=== PATIENT | female | born 1960 | race Hispanic/Latino ===

== ENCOUNTER 2018-04-03 16:56 | Observation (INO) | payer OTHER ==
[~2018-04-03] VITALS: Ht 160 cm; Wt 108.4 kg
[~2018-04-03 16:56] MED LIST: LOMOTIL1 EA; Z.0.ALEVE220 MG; Z.0.ATENOLOL50 MG; Z.0.CYMBALTA60 MG; Z.0.FLAGYL500 MG PO; Z.0.LEVAQUIN500 MG PO; [UNRECOGNIZED DRUG - OTHER]
--- OUTSIDE RECORDS SUMMARY | 2018-04-03 17:01 | XMS REPORT ---
Author Author Matt Chavarria Organization [employer] Address Unknown Phone Unavailable Care Team Providers Care Coordinate Measuring Machine Operator Name Role Phone Matt Chavarria CP Unavailable Allergies No Known Allergies Problems Problem Type Condition Code Onset Dates Condition Status Assessment Encounter for long-term (current) use of other high-risk medications Z79.899 Active Problem Encounter for long-term (current) use of other high-risk medications Z79.899 Active Problem Fibromyalgia M79.7 Active Problem Lumbar and sacral arthritis M48.9 Active Assessment Inflammatory polyarthropathy M06.4 Active Assessment Fibromyalgia M79.7 Active Problem Inflammatory polyarthropathy M06.4 Active Medications No Known Medications Results No Known Results Summary Purpose [employer]Works Submission
--- OUTSIDE RECORDS SUMMARY | 2018-04-03 17:01 | XMS REPORT ---
Author Author Karly Quintero [facility] e[employer] Address Unknown Phone Unavailable Care Team Providers Care Director Of Music Therapy Name Role Phone Karly Quintero Unavailable Allergies, Adverse Reactions, Alerts Substance Reaction Event Type Methotrexate leg cramps Non Drug Allergy Problems Problem Type Condition Code Onset Dates Condition Status Problem Encounter for long-term (current) use of other high-risk medications Z79.899 Active Problem Fibromyalgia M79.7 Active Problem Lumbar and sacral arthritis M48.9 Active Assessment Fibromyalgia M79.7 Active Assessment Encounter for long-term (current) use of other high-risk medications Z79.899 Active Problem Inflammatory polyarthropathy M06.4 Active Assessment Inflammatory polyarthropathy M06.4 Active Medications Medication Code System Code Instructions Start Date End Date Status Dosage Diazepam [facility] 44274593623 5 MG Orally Twice a day Active 1 tablet as needed Magnesium [facility] [address]-74 100 MG Orally once a day Active 2 tablet Colestipol HCl [facility] 82118992220 1 GM Orally Once a day Active 2 tablets Metoprolol Succinate ER [facility] 86476233888 50 MG Orally Once a day Active 1 tablet Folic Acid [facility] 19030418838 1 MG Orally Once a day Active 2 tablets Savella [facility] 02226766524 50 MG Orally Twice a day Active 1 tablet Glimepiride [facility] 27717950466 2 MG Orally Once a day Active 1 tablet with breakfast or the first main meal of the day Calcium [facility] 69693606439 600 MG Orally Twice a day Active 1 tablet with meals Methotrexate Sodium [facility] [address]-31 25 MG/ML Injection once a week Active 0.5 ml Cayenne [facility] 39276536840 450 MG Orally Active as directed Hydrochlorothiazide-25 mg [facility] 37484224319 25 MG Orally Three times a Week Active 1 tablet in the morning Sumatriptan Succinate [facility] 55140371888 100 MG Orally Twice a day Active 1 tablet as needed MetFORMIN HCl ER [facility] 17123239762 500 MG Orally BID Active 2 tablets Cinnamon ND 31886158660 1000 MG Orally Active as directed Vitamin D-3 ND 29114653256 5000 UNIT Orally Once a day Active 1 tablet Klor-Con [facility] 64336997084 10 MEQ Orally Once a day Active not defined Ranitidine HCl [facility] 96069243282 150 MG Orally Once a day Active 1 capsule at bedtime Fortify Daily Probiotic [facility] 27866951745 - Orally Active as directed Fish Oil [facility] 96278574947 1200 MG Orally twice a day Active 1 capsule TART BENITES EXTRACT/TUMERIC ND 0 1200 MG ORALLY ONCE A DAY Active ONE CAPSULE Vitamin C [facility] [address]-38 1000 MG Orally Once a day Active 1 tablet Vitamin B12 [facility] 12785785507 2000 MG Orally Once a day Active 1 tablet Gabapentin [facility] 70555035020 300 MG Orally Once a day Active 1tab qhs x3 days then 2 tabs at night Clonazepam [facility] 14293769021 0.5mg bid Active not defined Vital Signs Date/Time: August 19, 2017 BMI 46.67 Index Weight 247 lbs Height 61 in Temperature 97.5 F Cardiac Monitoring Heart Rate 100 /min Blood Pressure Diastolic 82 mm Hg Blood Pressure Systolic 112 mm Hg Results No Known Results Summary Purpose [employer]ClinicalWorks Submission
--- OUTSIDE RECORDS SUMMARY | 2018-04-03 17:01 | XMS REPORT ---
Author Matt Montilla Organization [employer] Address Unknown Phone Unavailable Care Team Providers Care Paving Crew Foreman Name Role Phone Matt Chavarria CP Unavailable Allergies No Known Allergies Problems Problem Type Condition Code Onset Dates Condition Status Problem Encounter for long-term (current) use of other high-risk medications Z79.899 Active Problem Fibromyalgia M79.7 Active Problem Lumbar and sacral arthritis M48.9 Active Problem Inflammatory polyarthropathy M06.4 Active Medications No Known Medications Results No Known Results Summary Purpose [employer]ClinicalWorks Submission
--- OUTSIDE RECORDS SUMMARY | 2018-04-03 17:01 | XMS REPORT ---
Author Author Matt Chavarria Organization [employer] Address Unknown Phone Unavailable Care Team Providers Care Smart Energy Specialist Name Role Phone Matt Chavarria CP Unavailable Allergies No Known Allergies Problems Problem Type Condition Code Onset Dates Condition Status Assessment Lumbar and sacral arthritis M48.9 Active Problem Encounter for long-term (current) use of other high-risk medications Z79.899 Active Problem Inflammatory polyarthropathy M06.4 Active Problem Lumbar and sacral arthritis M48.9 Active Assessment Fibromyalgia M79.7 Active Assessment Encounter for long-term (current) use of other high-risk medications Z79.899 Active Problem Fibromyalgia M79.7 Active Assessment Inflammatory polyarthropathy M06.4 Active Medications No Known Medications Results No Known Results Summary Purpose [employer] Submission
--- OUTSIDE RECORDS SUMMARY | 2018-04-03 17:01 | XMS REPORT ---
Author Matt Montilla Organization [employer] Address Unknown Phone Unavailable Care Team Providers Care Medical Videographer Name Role Phone Matt Chavarria CP Unavailable [...]
--- OUTSIDE RECORDS SUMMARY | 2018-04-03 17:01 | XMS REPORT ---
Author Author Karly Quintero [facility] eClinical[employer] Address Unknown Phone Unavailable Care Team Providers Care City Superintendent Of Schools Name Role Phone Karly Quintero Unavailable Allergies, Adverse Reactions, Alerts Substance Reaction Event Type Methotrexate leg cramps Non Drug Allergy Problems Problem Type Condition Code Onset Dates Condition Status Problem Encounter for long-term (current) use of other high-risk medications Z79.899 Active Problem Fibromyalgia M79.7 Active Problem Lumbar and sacral arthritis M48.9 Active Assessment Inflammatory polyarthropathy M06.4 Active Problem Inflammatory polyarthropathy M06.4 Active Assessment Elbow pain M25.529 Active Medications Medication Code System Code Instructions Start Date End Date Status Dosage Clonazepam [facility] 76868836803 0.5mg bid Active not defined Prednisone Taper [facility] 24239687910 5mg August 26, 2017 Active 3 tablets for 5 days, 2 tablets for 5 days and then 1 tablet for 5 days Hydrochlorothiazide-25 mg [facility] 51874813309 25 MG Orally Three times a Week Active 1 tablet in the morning Fish Oil [facility] 12981185868 1200 MG Orally twice a day Active 1 capsule Cayenne [facility] 54791825299 450 MG Orally Active as directed Magnesium [facility] [address]-40 100 MG Orally once a day Active 2 tablet Vitamin B12 [facility] 00224564713 2000 MG Orally Once a day Active 1 tablet Folic Acid [facility] 97459724830 1 MG Orally Once a day Active 2 tablets Glimepiride [facility] 22956118540 2 MG Orally Once a day Active 1 tablet with breakfast or the first main meal of the day Sumatriptan Succinate [facility] 11901132261 100 MG Orally Twice a day Active 1 tablet as needed Colestipol HCl [facility] 35290788180 1 GM Orally Once a day Active 2 tablets Ranitidine HCl [facility] 37640105663 150 MG Orally Once a day Active 1 capsule at bedtime Methotrexate Sodium [facility] [address]-57 25 MG/ML Injection once a week Active 0.5 ml Cinnamon NDC 21072647477 1000 MG Orally Active as directed Vitamin D-3 ND 80427872973 5000 UNIT Orally Once a day Active 1 tablet Cephalexin [facility] 41401027311 500 MG Orally TID August 26, 2017 Active 1 capsule TART BENITES EXTRACT/TUMERIC NDC 0 1200 MG ORALLY ONCE A DAY Active ONE CAPSULE Calcium ND 47013567989 600 MG Orally Twice a day Active 1 tablet with meals Klor-Con [facility] 06260329044 10 MEQ Orally Once a day Active not defined Fortify Daily Probiotic [facility] 67994871493 - Orally Active as directed Gabapentin [facility] 37839343524 300 MG Orally Once a day Active 1tab qhs x3 days then 2 tabs at night MetFORMIN HCl ER [facility] 45917996583 500 MG Orally BID Active 2 tablets Diazepam [facility] 51082009767 5 MG Orally Twice a day Active 1 tablet as needed Vitamin C [facility] [address]-74 1000 MG Orally Once a day Active 1 tablet Savella [facility] 34795717017 50 MG Orally Twice a day Active 1 tablet Metoprolol Succinate ER [facility] 93066179293 50 MG Orally Once a day Active 1 tablet Vital Signs Date/Time: August 29, 2017 BMI 46.57 Index Weight 246.5 lbs Height 61 in Temperature 97.2 F Cardiac Monitoring Heart Rate 78 /min Blood Pressure Diastolic 80 mm Hg Blood Pressure Systolic 122 mm Hg Results No Known Results Summary Purpose eClinicalWorks Submission
--- OUTSIDE RECORDS SUMMARY | 2018-04-03 17:01 | XMS REPORT ---
Author Matt Montilla Organization [employer] Address Unknown Phone Unavailable Care Team Providers Care Photo Tech Name Role Phone Matt Chavarria CP Unavailable [...]
--- OUTSIDE RECORDS SUMMARY | 2018-04-03 17:01 | XMS REPORT ---
Author Author Karly Quintero [facility] eClinicalWorks Address Unknown Phone Unavailable Care Team Providers Care Transportation Worker Name Role Phone Karly Quintero Unavailable Allergies No Known Allergies Problems Problem Type Condition Code Onset Dates Condition Status Problem Encounter for long-term (current) use of other high-risk medications Z79.899 Active Problem Fibromyalgia M79.7 Active Problem Lumbar and sacral arthritis M48.9 Active Problem Inflammatory polyarthropathy M06.4 Active Assessment Inflammatory polyarthropathy M06.4 Active Medications Medication Code System Code Instructions Start Date End Date Status Dosage Folic Acid [facility] 61313902197 1 MG Orally Once a day Active 2 tablets Results No Known Results Summary Purpose eClinicalWorks Submission
--- OUTSIDE RECORDS SUMMARY | 2018-04-03 17:01 | XMS REPORT ---
Author Matt Montilla Organization [employer] Address Unknown Phone Unavailable Care Team Providers Care Gutter Hanger Name Role Phone Matt Chavarria CP Unavailable [...]
--- OUTSIDE RECORDS SUMMARY | 2018-04-03 17:01 | XMS REPORT | Continuity of Care Document ---
Author Author Simone diogo [facility] Interface Address Unknown Phone Unavailable Problems Problem Status Onset Date Classification Date Reported Comments Source Encounter for long-term use of other high-risk medications Active Diagnosis 02/24/2018 Martin Chavarria Fibromyalgia Active Problem 02/24/2018 Martin Chavarria Lumbar and sacral arthritis Active Problem 02/24/2018 Martin Aura Inflammatory polyarthropathy Active Diagnosis 02/24/2018 Martin Chavarria Elbow pain Active Diagnosis 09/09/2017 Martin Chavarria Lumbosacral spondylosis without myelopathy Active Problem 02/11/2017 Martin Chavarria Lumbar spinal stenosis Active Diagnosis 02/11/2017 Martin Chavarria Lumbar foraminal stenosis Active Problem 02/11/2017 Martin Chavarria Diabetic peripheral neuropathy Active Problem 02/11/2017 Martin Chavarria Spasm of muscle, back Active Problem 02/11/2017 Martin Chavarria Lumbar radiculopathy Active Problem 02/11/2017 Martin Chavarria Medications Medication Details Route Status Patient Instructions Ordering Provider Order Date Source Prednisone Taper 3 tablets for 5 days, 2 tablets for 5 days and then 1 tablet for 5 days NA Active 5mg Quintero 08/26/2017 Martin Chavarria Cephalexin 1 capsule Orally Active 500 MG Orally TID Quintero 08/26/2017 Martin Chavarria Valium 1 tablet as needed Orally Active 5 MG Orally Twice a day Tonny 11/24/2016 Martin Chavarria Folic Acid 2 tablets Orally Active 1 MG Orally Once a day Quinterogildardo Chavarria Fish Oil 1 capsule Orally Active 1200 MG Orally twice a day Leon Chavarria Klor-Con not defined Orally Active 10 MEQ Orally Once a day Leon Chavarria Glimepiride 1 tablet with breakfast or the first main meal of the day Orally Active 2 MG Orally Once a day Leon Chavarria Hydrochlorothiazide-25 mg 1 tablet in the morning Orally Active 25 MG Orally Three times a Week Leon Chavarria TART BENITES EXTRACT/TUMERIC ONE CAPSULE ORALLY Active 1200 MG ORALLY ONCE A DAY Quinterogildardo Chavarria Magnesium 2 tablet Orally Active 100 MG Orally once a day Quintero Martin Chavarria Vitamin C 1 tablet Orally Active 1000 MG Orally Once a day Quintero Martin Chavarria Ranitidine HCl 1 capsule at bedtime Orally Active 150 MG Orally Once a day Quintero Martin Chavarria Clonazepam not defined NA Active 0.5mg bid [place] Martin Chavarria Calcium 1 tablet with meals Orally Active 600 MG Orally Twice a day [place] Martin Chavarria Vitamin B12 2 tablets Orally Active 500 MCG Orally Once a day Quintero Martin Chavarria Diazepam 1 tablet as needed Orally Active 5 MG Orally Twice a day [place] Martin Chavarria Gabapentin 1tab qhs x3 days then 2 tabs at night Orally Active 300 MG Orally Once a day Quintero Martin Chavarria Savella 1 tablet Orally Active 50 MG Orally Twice a day Quintero Martin Chavarria Colestipol HCl 2 tablets Orally Active 1 GM Orally Once a day [place] Martin Chavarria Metoprolol Succinate ER 1 tablet Orally Active 50 MG Orally Once a day [place] Martin Chavarria MetFORMIN HCl ER 2 tablets Orally Active 500 MG Orally BID [place] Martin Chavarria Cinnamon as directed Orally Active 1000 MG Orally [place] Martin Chavarria Cayenne as directed Orally Active 450 MG Orally [place] Martin Chavarria Sumatriptan Succinate 1 tablet as needed Orally Active 100 MG Orally Twice a day [place] Martin Chavarria Vitamin B12 1 tablet Orally Active 2000 MG Orally Once a day [place] Martin Chavarria Methotrexate Sodium 0.7 ml Injection Active 25 MG/ML Injection once a week [place] Martin Chavarria Fortify Daily Probiotic as directed Orally Active - Orally [place] Martin Chavarria TUMERIC 1 CAPSULE ORALLY Active 780MG ORALLY ONCE A DAY [place] Martin Chavarria ProAir HFA 2 puffs as needed Inhalation Active 108 (90 Base) MCG/ACT Inhalation every 4 hrs [place] Martin Chavarria Insulin Syringe 1 injection SC Active 28G X 1/2" 1 ML SC once per week [place] Martin Chavarria Alosetron HCl 1 tablet Orally Active 0.5 MG Orally Twice a day [place] Martin Chavarria Lumigan 1 drop into affected eye in the evening Ophthalmic Active 0.03 % Ophthalmic Once a day [place] Martin Chavarria Atenolol 1 tablet Orally Active 50 MG Orally Once a day [place] Martin Chavarria Omeprazole 1 tablet Orally Active 20 MG Orally Once a day [place] Martin Chavarria Omeprazole 1 tablet Orally Active 20 MG Orally Once a day [place] Martin Chavarria Cinnamon as directed Orally Active 1000 MG Orally [place] Martin Chavarria Atenolol 1 tablet Orally Active 50 MG Orally Once a day [place] Martin Chavarria Glimepiride 1 tablet with breakfast or the first main meal of the day Orally Active 2 MG Orally Once a day [place] Martin Chavarria Fish Oil 1 capsule Orally Active 1200 MG Orally twice a day [place] Martin Giller Insulin Syringe 1 injection SC Active 28G X 1/2" 1 ML SC once per week Clinton aMrtin Giller Klor-Con not defined Orally Active 10 MEQ Orally Once a day [place] Martin Chavarria Alosetron HCl 1 tablet Orally Active 0.5 MG Orally Twice a day [place] Martin Giller Calcium 1 tablet with meals Orally Active 600 MG Orally Twice a day [place] Martin Chavarria Vitamin B12 1 tablet Orally Active 2000 MG Orally Once a day [place] Martin Chavarria MetFORMIN HCl ER 1 tablet with evening meal Orally Active 500 MG Orally Once a day [place] Martin Giller Clonazepam not defined NA Active [place] Martin Chavarria Tramadol HCl 1 tablet as needed Orally Active 50 MG Orally every 6 hrs [place] Martin Giller ProAir HFA 2 puffs as needed Inhalation Active 108 (90 Base) MCG/ACT Inhalation every 4 hrs [place] Martin Giller Hydrochlorothiazide-25 mg 1 tablet in the morning Orally Active 25 MG Orally Three times a Week [place] Martin Chavarria Methotrexate Sodium INJECT 0.5ML DIRECTED ONCE A WEEK. NA Active 50 MG/2ML [place] Martin Chavarria Vitamin D-3 1 tablet Orally Active 5000 UNIT Orally Once a day [place] Martin Giller Folic Acid 1 tablet Orally Active 1 MG Orally Once a day [facility] Martin Chavarria Hydrochlorothiazide 1 tablet in the morning Orally Active 25 MG Orally Three times a Week [facility] Martin Chavarria Omeprazole 1 capsule Orally Active 20 MG Orally Once a day [facility] Martin Chavarria Klor-Con 10 1 tablet with food Orally Active 10 MEQ Orally Twice a day [facility] Martin Chavarria Claritin 1 tablet Orally Active 10 MG Orally Once a day [facility] Martin Chavarria Methotrexate Sodium as directed Injection Active 50 MG/2ML Injection [facility] Martin Chavarria Klor-Con 10 1 tablet with food Orally Active 10 MEQ Orally Twice a day [facility] Martin Chavarria Savella as directed Orally Active 5 MG Orally Twice a day [facility] Maritn Chavarria Valium 1 tablet as needed Orally Active 5 MG Orally Twice a day [facility] Martin Chavarria Claritin 1 tablet Orally Active 10 MG Orally Once a day [facility] Martin Chavarria Methotrexate Sodium as directed Injection Active 50 MG/2ML Injection [facility] Martin Chavarria Omeprazole 1 capsule Orally Active 20 MG Orally Once a day [facility] Martin Chavarria Tramadol HCl 1 tablet as needed Orally Active 50 MG Orally every 6 hrs [facility] Martin Chavarria Physical Therapy as directed NA Active Eval & Treat [facility] Martin Chavarria Folic Acid 1 tablet Orally Active 1 MG Orally Once a day [facility] Martin Chavarria Hydrochlorothiazide 1 tablet in the morning Orally Active 25 MG Orally Three times a Week [facility] Martin Chavarria Allergies, Adverse Reactions, Alerts Substance Category Reaction Severity Reaction type Status Date Reported Comments Source N.K.D.A. Adverse Reaction Info Not Available Adverse Reaction Active 12/30/2016 Martin Chavarria Lyrica Adverse Reaction Blurry vision Adverse Reaction Active 01/31/2017 Martin Chavarria Gabapentin Adverse Reaction drowsy Adverse Reaction Active 01/31/2017 Martin Chavarria Contrast dye Adverse Reaction Info Not Available Adverse Reaction Active 01/31/2017 Martin Chavarria Methotrexate Adverse Reaction leg cramps Adverse Reaction Active 02/16/2018 Martin Chavarria Immunizations Immunization Date Given Site Status Last Updated Comments Source Results Order Name Results Value Reference Range Date Interpretation Comments Source Vital Signs Vital Sign Value Date Comments Source Weight 235.9 02/16/2018 Martin Chavarria Height 61 02/16/2018 Martin Giller Temperature Oral (F) 97.3 F 02/16/2018 Martin Giller Heart Rate 80 02/16/2018 Martin Chavarria Diastolic (mm Hg) 62 02/16/2018 Martin Chavarria Systolic (mm Hg) 122 02/16/2018 Martin Chavarria Weight 245 11/17/2017 Martin Giller Height 61 11/17/2017 Martin Giller Temperature Oral (F) 98.0 F 11/17/2017 Martin Chavarria Heart Rate 88 11/17/2017 Martin Chavarria Diastolic (mm Hg) 86 11/17/2017 Martin Chavarria Systolic (mm Hg) 140 11/17/2017 Martin Chavarria Weight 246.5 08/29/2017 Martin Chavarria Height 61 08/29/2017 Martin Chavarria Temperature Oral (F) 97.2 F 08/29/2017 Martin Chavarria Heart Rate 78 08/29/2017 Martin Chavarria Diastolic (mm Hg) 80 08/29/2017 Martin Chavarria Systolic (mm Hg) 122 08/29/2017 Martin Chavarria Weight 247 08/19/2017 Martin Chavarria Height 61 08/19/2017 Martin Chavarria Temperature Oral (F) 97.5 F 08/19/2017 Martin Chavarria Heart Rate 100 08/19/2017 Martin Chavarria Diastolic (mm Hg) 82 08/19/2017 Martin Chavarria Systolic (mm Hg) 112 08/19/2017 Martin Chavarria Weight 245.5 05/30/2017 Martin Chavarria Height 61 05/30/2017 Martin Chavarria Temperature Oral (F) 97.5 F 05/30/2017 Martin Chavarria Heart Rate 74 05/30/2017 Martin Chavarria Diastolic (mm Hg) 72 05/30/2017 Martin Chavarria Systolic (mm Hg) 128 05/30/2017 Martin Chavarria Weight 260.1 03/01/2017 Martin Chavarria Height 61 03/01/2017 Martin Chavarria Temperature Oral (F) 98.0 F 03/01/2017 Martin Chavarria Heart Rate 90 03/01/2017 Martin Chavarria Diastolic (mm Hg) 72 03/01/2017 Martin Chavarria Systolic (mm Hg) 118 03/01/2017 Martin Chavarria Weight 263 02/14/2017 Martin Chavarria Height 61 02/14/2017 Martin Chavarria Temperature Oral (F) 97.6 F 02/14/2017 Martin Chavarria Heart Rate 70 02/14/2017 Martin Chavarria Diastolic (mm Hg) 70 02/14/2017 Martin Chavarria Systolic (mm Hg) 128 02/14/2017 Martin Chavarria Weight 260.3 01/31/2017 Martin Chavarria Height 61 01/31/2017 Martin Chavarria Temperature Oral (F) 97.3 F 01/31/2017 Martin Chavarria Heart Rate 112 01/31/2017 Martin Chavarria Diastolic (mm Hg) 72 01/31/2017 Martin Chavarria Systolic (mm Hg) 104 01/31/2017 Martin Chavarria Weight 261.9 12/30/2016 Martin Chavarria Height 61 12/30/2016 Martin Chavarria Temperature Oral (F) 96.7 F 12/30/2016 Martin Chavarria Heart Rate 70 12/30/2016 Martin Chavarria Diastolic (mm Hg) 76 12/30/2016 Martin Chavarria Systolic (mm Hg) 124 12/30/2016 Martin Chavarria Weight 259.7 11/24/2016 Martin Chavarria Height 61 11/24/2016 Martin Chavarria Temperature Oral (F) 97.4 F 11/24/2016 Martin Chavarria Heart Rate 64 11/24/2016 Martin Chavarria Diastolic (mm Hg) 80 11/24/2016 Martin Chavarria Systolic (mm Hg) 132 11/24/2016 Martin Chavarria Encounters Location Location Details Encounter Type Encounter Number Reason For Visit Attending Provider ADM Date DC Date Status Source Procedures Procedure Code Date Perfomer Comments Source
--- OUTSIDE RECORDS SUMMARY | 2018-04-03 17:01 | XMS REPORT ---
Author Author Karly Quintero [facility] eClinicalWorks Address Unknown Phone Unavailable Care Team Providers Care Him Director Name Role Phone Karly Quintero Unavailable Allergies, [...] Instructions Start Date End Date Status Dosage TUMERIC NDC 0 780MG ORALLY ONCE A DAY Active 1 CAPSULE ProAir HFA [facility] 16873836823 108 (90 Base) MCG/ACT Inhalation every 4 hrs Active 2 puffs as needed TART BENITES EXTRACT/TUMERIC NDC 0 1200 MG ORALLY ONCE A DAY Active ONE CAPSULE Insulin Syringe [facility] 95644523772 28G X 1/2" 1 ML SC once per week Active 1 injection Alosetron HCl ND 46011165908 0.5 MG Orally Twice a day Active 1 tablet Lumigan [facility] [address]-27 0.03 % Ophthalmic Once a day Active 1 drop into affected eye in the evening Folic Acid ND 37581611536 1 MG Orally Once a day Active 2 tablets Cinnamon ND 57165071260 1000 MG Orally Active as directed Fish Oil ND 76448741171 1200 MG Orally twice a day Active 1 capsule Klor-Con ND 63512420456 10 MEQ Orally Once a day Active not defined Atenolol ND 01886167532 50 MG Orally Once a day Active 1 tablet Hydrochlorothiazide-25 mg ND 26068367636 25 MG Orally Three times a Week Active 1 tablet in the morning Vitamin B12 ND 34168153249 2000 MG Orally Once a day Active 1 tablet Magnesium [facility] [address]-49 100 MG Orally once a day Active 2 tablet Glimepiride [facility] 61989985038 2 MG Orally Once a day Active 1 tablet with breakfast or the first main meal of the day Clonazepam [facility] 63327140825 Active not defined Omeprazole [facility] 82679216260 20 MG Orally Once a day Active 1 tablet MetFORMIN HCl ER [facility] 87260804560 500 MG Orally Once a day Active 1 tablet with evening meal Calcium [facility] 96805974523 600 MG Orally Twice a day Active 1 tablet with meals Vital Signs Date/Time: Mar 01, 2017 BMI 49.14 Index Weight 260.1 lbs Height 61 in Temperature 98.0 F Cardiac Monitoring Heart Rate 90 /min Blood Pressure Diastolic 72 mm Hg Blood Pressure Systolic 118 mm Hg Results No Known Results Summary Purpose eClinicalWorks Submission
--- OUTSIDE RECORDS SUMMARY | 2018-04-03 17:01 | XMS REPORT ---
Author Author Manjeet Lancaster Organization eClinicalWorks Address Unknown Phone Unavailable Care Team Providers Care Armature Connector Name Role Phone Manjeet Lancaster CP Unavailable Allergies No Known Allergies Problems Problem Type Condition Code Onset Dates Condition Status Problem Lumbosacral spondylosis without myelopathy M47.817 Active Medications No Known Medications Results No Known Results Summary Purpose eClinicalWorks Submission
--- OUTSIDE RECORDS SUMMARY | 2018-04-03 17:01 | XMS REPORT ---
Author Author Karly Quintero [facility] eClinicalWorks Address Unknown Phone Unavailable Care Team Providers Care X Ray Equipment Mechanic Name Role Phone Karly Quintero Unavailable Allergies, Adverse Reactions, Alerts Substance Reaction Event Type N.K.D.A. Info Not Available Non Drug Allergy Problems Problem Type Condition Code Onset Dates Condition Status Problem Encounter for long-term (current) use of other high-risk medications Z79.899 Active Problem Inflammatory polyarthropathy M06.4 Active Problem Lumbar and sacral arthritis M48.9 Active Assessment Encounter for long-term (current) use of other high-risk medications Z79.899 Active Problem Fibromyalgia M79.7 Active Assessment Inflammatory polyarthropathy M06.4 Active Medications Medication Code System Code Instructions Start Date End Date Status Dosage Methotrexate Sodium [facility] [address]-51 25 MG/ML Injection once a week Active 0.5 ml Folic Acid [facility] 42144254297 1 MG Orally Once a day Active [address] [facility] [address]-59 100 MG Orally once a day Active [address] [facility] [address]-78 20 MG Orally Once a day Active [address] [facility] [address]45 1000 MG Orally Active as directed Atenolol [facility] [address]-95 50 MG Orally Once a day Active [address] [facility] [address]-05 2 MG Orally Once a day Active 1 tablet with breakfast or the first main meal of the day TUMERIC NDC 0 780MG ORALLY ONCE A DAY Active 1 CAPSULE Fish Oil [facility] [address]23[address] 1200 MG Orally twice a day Active 1 capsule TART BENITES EXTRACT/TUMERIC NDC 0 1200 MG ORALLY ONCE A DAY Active ONE CAPSULE Insulin Syringe [facility] 8330-872777 28G X 1/2" 1 ML SC once per week Active 1 injection Klor-Con [facility] [address]-38 10 MEQ Orally Once a day Active not defined Alosetron HCl [facility] [address]-17 0.5 MG Orally Twice a day Active [address] [facility] [address] 600 MG Orally Twice a day Active 1 tablet with meals Vitamin B12 [facility] [address]29 2000 MG Orally Once a day Active [address] [facility] [address]-40 0.03 % Ophthalmic Once a day Active 1 drop into affected eye in the evening MetFORMIN HCl ER [facility] [address]-12 500 MG Orally Once a day Active 1 tablet with evening meal Clonazepam [facility] [address]-52 Active not defined Tramadol HCl [facility] [address]-48 50 MG Orally every 6 hrs Active 1 tablet as needed ProAir HFA [facility] [address]-33 108 (90 Base) MCG/ACT Inhalation every 4 hrs Active 2 puffs as needed Hydrochlorothiazide-[address] [facility] [address]-24 25 MG Orally Three times a Week Active 1 tablet in the morning Vital Signs Date/Time: Dec 30, 2016 BMI 49.48 Index Weight 261.9 lbs Height 61 in Temperature 96.7 F Cardiac Monitoring Heart Rate 70 /min Blood Pressure Diastolic 76 mm Hg Blood Pressure Systolic 124 mm Hg Results No Known Results Summary Purpose eClinicalWorks Submission
--- OUTSIDE RECORDS SUMMARY | 2018-04-03 17:01 | XMS REPORT ---
Author Author Karly Quintero [facility] eClinicalWorks Address Unknown Phone Unavailable Care Team Providers Care Automobile Service Station Manager Name Role Phone Karly Quintero Unavailable Allergies, [...] Date End Date Status Dosage Folic Acid [facility] 69122286829 1 MG Orally Once a day Active [address] [facility] 33108741595 2 MG Orally Once a day Active 1 tablet with breakfast or the first main meal of the day Atenolol [facility] 94813451802 50 MG Orally Once a day Active 1 tablet Vitamin B12 [facility] 24855386676 2000 MG Orally Once a day Active 1 tablet ProAir HFA [facility] 64944149902 108 (90 Base) MCG/ACT Inhalation every 4 hrs Active 2 puffs as needed Clonazepam [facility] 11119046476 Active not defined Magnesium [facility] [address]-17 100 MG Orally once a day Active 2 tablet Fish Oil [facility] 32785978249 1200 MG Orally twice a day Active [address] [facility] [address]-67 0.03 % Ophthalmic Once a day Active 1 drop into affected eye in the evening TART BENITES EXTRACT/TUMERIC ND 0 1200 MG ORALLY ONCE A DAY Active ONE CAPSULE MetFORMIN HCl ER [facility] 91514041622 500 MG Orally Once a day Active 1 tablet with evening meal Hydrochlorothiazide-[address] [facility] 86138701684 25 MG Orally Three times a Week Active 1 tablet in the morning Klor-Con [facility] 37924890983 10 MEQ Orally Once a day Active not defined Insulin Syringe [facility] 05631624151 28G X 1/2" 1 ML SC once per week Active 1 injection Omeprazole ND 25671338351 20 MG Orally Once a day Active 1 tablet TUMERIC NDC 0 780MG ORALLY ONCE A DAY Active 1 CAPSULE Alosetron HCl [facility] 90896844234 0.5 MG Orally Twice a day Active [address] [facility] 83174018607 600 MG Orally Twice a day Active 1 tablet with meals Cinnamon [facility] 29756232015 1000 MG Orally Active as directed Vital Signs Date/Time: Feb 14, 2017 BMI 49.69 Index Weight 263 lbs Height 61 in Temperature 97.6 F Cardiac Monitoring Heart Rate 70 /min Blood Pressure Diastolic 70 mm Hg Blood Pressure Systolic 128 mm Hg Results No Known Results Summary Purpose eClinicalWorks Submission
--- OUTSIDE RECORDS SUMMARY | 2018-04-03 17:01 | XMS REPORT ---
Author Matt Montilla Organization eClinicalWorks Address Unknown Phone Unavailable Care Team Providers Care Research Home Economist Name Role Phone Matt Chavarria CP Unavailable Allergies No Known Allergies Problems Problem Type Condition Code Onset Dates Condition Status Problem Encounter for long-term (current) use of other high-risk medications Z79.899 Active Problem Fibromyalgia M79.7 Active Problem Lumbar and sacral arthritis M48.9 Active Problem Inflammatory polyarthropathy M06.4 Active Medications Medication Code System Code Instructions Start Date End Date Status Dosage Prednisone Taper [facility] 41847236960 5mg August 26, 2017 Active 3 tablets for 5 days, 2 tablets for 5 days and then 1 tablet for 5 days Cephalexin [facility] 53433585951 500 MG Orally TID August 26, 2017 Active 1 capsule Results No Known Results Summary Purpose eClinicalWorks Submission
--- OUTSIDE RECORDS SUMMARY | 2018-04-03 17:01 | XMS REPORT ---
Author Author Manjeet Lancaster Organization eClinicalWorks Address Unknown Phone Unavailable Care Team Providers Care Operations Liaison Name Role Phone Manjeet Lancaster CP Unavailable Allergies No Known Allergies Problems Problem Type Condition Code Onset Dates Condition Status Problem Lumbar spinal stenosis M48.06 Active Problem Lumbar foraminal stenosis M99.83 Active Problem Diabetic peripheral neuropathy E11.42 Active Problem Spasm of muscle, back M62.830 Active Problem Lumbosacral spondylosis without myelopathy M47.817 Active Medications No Known Medications Results No Known Results Summary Purpose eClinicalWorks Submission
--- OUTSIDE RECORDS SUMMARY | 2018-04-03 17:01 | XMS REPORT ---
Author Author Karly Quintero [facility] eClinicalWorks Address Unknown Phone Unavailable Care Team Providers Care Underground Truck Operator Name Role Phone Karly Quintero Unavailable Allergies, [...] use of other high-risk medications Z79.899 Active Assessment Lumbar and sacral arthritis M48.9 Active Problem Inflammatory polyarthropathy M06.4 Active Assessment Inflammatory polyarthropathy M06.4 Active Medications Medication Code System Code Instructions Start Date End Date Status Dosage Ranitidine HCl [facility] 48899466784 150 MG Orally Once a day Active 1 capsule at bedtime Cayenne [facility] 48394452397 450 MG Orally Active as directed Metoprolol Succinate ER [facility] 06525649189 50 MG Orally Once a day Active 1 tablet Magnesium [facility] [address]-93 100 MG Orally once a day Active 2 tablet Fish Oil [facility] 59068457068 1200 MG Orally twice a day Active 1 capsule Methotrexate Sodium [facility] [address]-81 25 MG/ML Injection once a week Active 0.7 ml Glimepiride [facility] 93456342861 2 MG Orally Once a day Active 1 tablet with breakfast or the first main meal of the day Vitamin C [facility] [address]-18 1000 MG Orally Once a day Active 1 tablet Diazepam [facility] 70385783604 5 MG Orally Twice a day Active 1 tablet as needed Folic Acid [facility] 14475259409 1 MG Orally Once a day Active 2 tablets Klor-Con [facility] 65312748107 10 MEQ Orally Once a day Active not defined Clonazepam [facility] 02280630690 0.5mg bid Active not defined Calcium [facility] 07172003331 600 MG Orally Twice a day Active 1 tablet with meals MetFORMIN HCl ER [facility] 28756252038 500 MG Orally BID Active 2 tablets Fortify Daily Probiotic [facility] 60604209361 - Orally Active as directed Colestipol HCl [facility] 77340318906 1 GM Orally Once a day Active 2 tablets Hydrochlorothiazide-25 mg [facility] 00378592894 25 MG Orally Three times a Week Active 1 tablet in the morning Vitamin B12 [facility] 40025310160 2000 MG Orally Once a day Active 1 tablet TART BENITES EXTRACT/TUMERIC NDC 0 1200 MG ORALLY ONCE A DAY Active ONE CAPSULE Savella [facility] 53081184364 50 MG Orally Twice a day Active 1 tablet Vitamin D-3 [facility] 86036709445 5000 UNIT Orally Once a day Active 1 tablet Cinnamon [facility] 45202061059 1000 MG Orally Active as directed Prednisone Taper [facility] 57155017730 5mg August 26, 2017 Active 3 tablets for 5 days, 2 tablets for 5 days and then 1 tablet for 5 days Sumatriptan Succinate [facility] 25359280399 100 MG Orally Twice a day Active 1 tablet as needed Gabapentin [facility] 44538558255 300 MG Orally Once a day Active 1tab qhs x3 days then 2 tabs at night Cephalexin [facility] 09111335087 500 MG Orally TID August 26, 2017 Active 1 capsule Vital Signs Date/Time: Nov 17, 2017 BMI 46.29 Index Weight 245 lbs Height 61 in Temperature 98.0 F Cardiac Monitoring Heart Rate 88 /min Blood Pressure Diastolic 86 mm Hg Blood Pressure Systolic 140 mm Hg Results Name Result Date Reference Range Unit Abnormality Flag 1055 SEDIMENTATION RATE ----SEDIMENTATION RATE 26 [id number] 0-20 MM/HOUR H 1000 CBC W/AUTO DIFF ----PLATELET COUNT 301 20171117 130-400 K/UL ----MCV 84.7 20171117 80.0-100.0 fL ----HEMATOCRIT 38.1 40235789 34.0-45.0 % ----BASOPHILS 0.6 82705991 0.0-2.0 % ----MCHC 35.2 56903564 32.0-35.5 G/DL ----EOSINOPHILS 2.7 94530063 0.0-7.0 % ----MCH 29.8 01291277 27.0-34.0 PG ----MONOCYTES 5.0 53869630 4.0-13.0 % ----WBC 7.2 40097718 4.0-11.0 K/UL ----HEMOGLOBIN 13.4 05563917 11.5-15.5 G/DL ----RBC 4.50 37773379 3.80-5.10 M/UL ----LYMPHOCYTES 31.2 09847278 19.0-48.0 % ----RDW 13.5 30297951 11.0-15.0 % ----NEUTROPHILS 60.5 89697249 40.0-74.0 % 9179 COMPREHENSIVE METABOLIC PANEL ----CALC A/G RATIO 1.7 70013763 1.0-2.6 RATIO ----CALC GLOBULIN 2.5 42088621 1.9-3.7 G/DL ----ALKALINE PHOSPHATASE 101 27811527 40-136 U/L ----BILIRUBIN, TOTAL 0.3 47639100 <=1.2 MG/DL ----CHLORIDE 102 77752686 95-107 MEQ/L ----ALT 19 32858901 5-40 U/L ----POTASSIUM 4.7 55244997 3.5-5.4 MEQ/L ----AST 25 46147665 9-40 U/L ----SODIUM 142 94147743 133-146 MEQ/L ----CALC BUN/CREAT 22 42850945 6-28 RATIO ---- eGFR NON- AMER. 101 62117299 >60 ML/MIN/1.73 ----CALCIUM 9.3 70878986 8.5-10.5 MG/DL ----CARBON DIOXIDE 28 43952462 19-31 MEQ/L ----ALBUMIN 4.3 60708049 3.5-5.2 G/DL ----PROTEIN, TOTAL 6.8 79080020 6.1-8.3 G/DL ----GLUCOSE 207 46766037 70-99 MG/DL H ----BUN 13 89336193 6-20 MG/DL ----CREATININE 0.58 63962069 0.60-1.30 MG/DL L ---- eGFR AMER. 117 53529469 >60 ML/MIN/1.73 5083 HIGH SENSITIVITY CRP ----HIGH SENSITIVITY CRP 11.2 72563963 SEE BELOW MG/L H Summary Purpose eClinicalWorks Submission
--- OUTSIDE RECORDS SUMMARY | 2018-04-03 17:01 | XMS REPORT ---
Author Matt Montilla Organization eClinicalWorks Address Unknown Phone Unavailable Care Team Providers Care Arc Cutter Name Role Phone Matt Chavarria CP Unavailable [...]
--- OUTSIDE RECORDS SUMMARY | 2018-04-03 17:01 | XMS REPORT ---
Author Author Karly Quintero [facility] eClinicalWorks Address Unknown Phone Unavailable Care Team Providers Care Structures Assembler Name Role Phone Karly Quintero Unavailable Allergies, Adverse Reactions, Alerts Substance Reaction Event Type Methotrexate leg cramps Non Drug Allergy Problems Problem Type Condition Code Onset Dates Condition Status Problem Encounter for long-term (current) use of other high-risk medications Z79.899 Active Problem Fibromyalgia M79.7 Active Problem Lumbar and sacral arthritis M48.9 Active Assessment Inflammatory polyarthropathy M06.4 Active Assessment Encounter for long-term (current) use of other high-risk medications Z79.899 Active Problem Inflammatory polyarthropathy M06.4 Active Medications Medication Code System Code Instructions Start Date End Date Status Dosage TART BENITES EXTRACT/TUMERIC NDC 0 1200 MG ORALLY ONCE A DAY Active ONE CAPSULE Vitamin B12 ND 63668238961 2000 MG Orally Once a day Active 1 tablet Methotrexate Sodium ND 30244480774 50 MG/2ML Active INJECT 0.5ML DIRECTED ONCE A WEEK. MetFORMIN HCl ER ND 29422864366 500 MG Orally BID Active 2 tablets Gabapentin ND 67657212078 300 MG Orally Once a day Active 1tab qhs x3 days then 2 tabs at night Cephalexin ND 69375237649 500 MG Orally TID August 26, 2017 Active 1 capsule Prednisone Taper ND 39556904460 5mg August 26, 2017 Active 3 tablets for 5 days, 2 tablets for 5 days and then 1 tablet for 5 days Cinnamon ND 11337256918 1000 MG Orally Active as directed Glimepiride ND 83191865767 2 MG Orally Once a day Active 1 tablet with breakfast or the first main meal of the day Cayenne ND 62871730622 450 MG Orally Active as directed Folic Acid ND 95226721088 1 MG Orally Once a day Active 2 tablets Sumatriptan Succinate ND 76978341853 100 MG Orally Twice a day Active 1 tablet as needed Fish Oil ND 74554805426 1200 MG Orally twice a day Active 1 capsule Klor-Con [facility] 45712046055 10 MEQ Orally Once a day Active not defined Diazepam [facility] 60977628227 5 MG Orally Twice a day Active 1 tablet as needed Magnesium [facility] [address]-74 100 MG Orally once a day Active [address] [facility] 43108838636 0.5mg bid Active not defined Hydrochlorothiazide-[address] [facility] 66101409829 25 MG Orally Three times a Week Active 1 tablet in the morning Methotrexate Sodium [facility] [address]-69 25 MG/ML Injection once a week Active 0.7 ml Colestipol HCl [facility] 23842533624 1 GM Orally Once a day Active 2 tablets Fortify Daily Probiotic [facility] 71051790445 - Orally Active as directed Calcium [facility] 66048688417 600 MG Orally Twice a day Active 1 tablet with meals Savella [facility] 32179459113 50 MG Orally Twice a day Active 1 tablet Metoprolol Succinate ER [facility] 47546712368 50 MG Orally Once a day Active 1 tablet Vitamin C [facility] [address]-94 1000 MG Orally Once a day Active 1 tablet Vitamin D-[address] [facility] 93961376666 5000 UNIT Orally Once a day Active 1 tablet Vital Signs Date/Time: Feb 16, 2018 BMI 44.57 Index Weight 235.9 lbs Height 61 in Temperature 97.3 F Cardiac Monitoring Heart Rate 80 /min Blood Pressure Diastolic 62 mm Hg Blood Pressure Systolic 122 mm Hg Results No Known Results Summary Purpose eClinicalWorks Submission
--- OUTSIDE RECORDS SUMMARY | 2018-04-03 17:01 | XMS REPORT ---
Author Author Karly Quintero [facility] eClinicalWorks Address Unknown Phone Unavailable Care Team Providers Care Pricing Associate Name Role Phone Karly Quintero Unavailable Allergies, [...] Instructions Start Date End Date Status Dosage Fish Oil [facility] 36406235993 1200 MG Orally twice a day Active 1 capsule Klor-Con ND 03223630817 10 MEQ Orally Once a day Active not defined Glimepiride ND 15695664196 2 MG Orally Once a day Active 1 tablet with breakfast or the first main meal of the day Hydrochlorothiazide-25 mg ND 23467744380 25 MG Orally Three times a Week Active 1 tablet in the morning TART BENITES EXTRACT/TUMERIC ND 0 1200 MG ORALLY ONCE A DAY Active ONE CAPSULE Magnesium [facility] [address]-32 100 MG Orally once a day Active 2 tablet Vitamin C [facility] [address]-92 1000 MG Orally Once a day Active 1 tablet Ranitidine HCl ND 95134320011 150 MG Orally Once a day Active 1 capsule at bedtime Clonazepam ND 36936271458 0.5mg bid Active not defined Calcium ND 42099940205 600 MG Orally Twice a day Active 1 tablet with meals Vitamin B12 [facility] 24567-[address]25 500 MCG Orally Once a day Active 2 tablets Diazepam ND 33727311723 5 MG Orally Twice a day Active 1 tablet as needed Gabapentin ND 77608560564 300 MG Orally Once a day Active 1tab qhs x3 days then 2 tabs at night Savella [facility] 48503111314 50 MG Orally Twice a day Active 1 tablet Colestipol HCl [facility] 08809309615 1 GM Orally Once a day Active 2 tablets Metoprolol Succinate ER [facility] 43320796855 50 MG Orally Once a day Active 1 tablet MetFORMIN HCl ER [facility] 58826526720 500 MG Orally BID Active 2 tablets Cinnamon [facility] 40399894036 1000 MG Orally Active as directed Cayenne [facility] 56906271682 450 MG Orally Active as directed Sumatriptan Succinate [facility] 63660147128 100 MG Orally Twice a day Active 1 tablet as needed Vitamin B12 [facility] 18983045194 2000 MG Orally Once a day Active 1 tablet Folic Acid [facility] 72882636217 1 MG Orally Once a day Active 2 tablets Methotrexate Sodium [facility] [address]-35 25 MG/ML Injection once a week Active 0.5 ml Fortify Daily Probiotic [facility] 66418878913 - Orally Active as directed Vital Signs Date/Time: May 30, 2017 BMI 46.38 Index Weight 245.5 lbs Height 61 in Temperature 97.5 F Cardiac Monitoring Heart Rate 74 /min Blood Pressure Diastolic 72 mm Hg Blood Pressure Systolic 128 mm Hg Results No Known Results Summary Purpose eClinicalWorks Submission
--- OUTSIDE RECORDS SUMMARY | 2018-04-03 17:01 | XMS REPORT ---
Author Author Manjeet Lancaster Organization eClinicalWorks Address Unknown Phone Unavailable Care Team Providers Care Tube Splicer Name Role Phone Manjeet Lancaster CP Unavailable Allergies No Known Allergies Problems Problem Type Condition Code Onset Dates Condition Status Problem Lumbar foraminal stenosis M99.83 Active Problem Spasm of muscle, back M62.830 Active Problem Lumbar spinal stenosis M48.06 Active Problem Lumbosacral spondylosis without myelopathy M47.817 Active Assessment Lumbosacral spondylosis without myelopathy M47.817 Active Medications No Known Medications Results No Known Results Summary Purpose eClinicalWorks Submission
--- OUTSIDE RECORDS SUMMARY | 2018-04-03 17:02 | XMS REPORT ---
Author Author Manjeet Lancaster Organization [employer] Address Unknown Phone Unavailable Care Team Providers Care Weigher And Crusher Name Role Phone Manjeet Lancaster CP Unavailable Allergies No Known Allergies Problems Problem Type Condition Code Onset Dates Condition Status Problem Lumbar foraminal stenosis M99.83 Active Problem Spasm of muscle, back M62.830 Active Problem Lumbar spinal stenosis M48.06 Active Problem Lumbosacral spondylosis without myelopathy M47.817 Active Assessment Lumbosacral spondylosis without myelopathy M47.817 Active Medications Medication Code System Code Instructions Start Date End Date Status Dosage Claritin [facility] [address]-70 10 MG Orally Once a day Active 1 tablet Klor-Con 10 [facility] [address]-94 10 MEQ Orally Twice a day Active 1 tablet with food Fish Oil [facility] [address]196 1200 MG Orally Once a day Active 1 capsule TUMERIC NDC 0 400 MG ORALLY ONCE A DAY Active 1 CAPSULE Magnesium [facility] [address]-60 100 MG Orally Four times a day Active 1 tablet with food Glimepiride [facility] [address]-71 2 MG Orally Once a day Active 1 tablet with breakfast or the first main meal of the day TART BENITES EXTRACT/TUMERIC NDC 0 875 MG ORALLY ONCE A DAY Active ONE CAPSULE Atenolol [facility] [address]-87 50 MG Orally Once a day Active 1 tablet Insulin Syringe [facility] 8330-873766 28G X 1/2" 1 ML Active as directed Alosetron HCl [facility] [address]-88 0.5 MG Orally Twice a day Active 1 tablet Folic Acid [facility] [address]-26 1 MG Orally Once a day Active 1 tablet Hydrochlorothiazide [facility] [address]-34 25 MG Orally Three times a Week Active 1 tablet in the morning Calcium [facility] 17190-84769 600 MG Orally Twice a day Active 1 tablet with meals Tramadol HCl [facility] [address]-07 50 MG Orally every 6 hrs Active 1 tablet as needed Omeprazole [facility] [address]-22 20 MG Orally Once a day Active 1 capsule Methotrexate Sodium [facility] [address]-08 50 MG/2ML Injection Active as directed Valium [facility] [address]-96 5 MG Orally Twice a day Nov 24, 2016 Active 1 tablet as needed Cinnamon [facility] 08[address]-63946 500 MG Orally Active as directed MetFORMIN HCl ER [facility] [address]-54 500 MG Orally Once a day Active 1 tablet with evening meal Lumigan [facility] [address]-39 0.03 % Ophthalmic Once a day Active 1 drop into affected eye in the evening Vitamin B12 [facility] 65152-80946 1000 MCG Orally Once a day Active 1 tablet ProAir HFA [facility] [address]-16 108 (90 Base) MCG/ACT Inhalation every 4 hrs Active 2 puffs as needed Results No Known Results Summary Purpose eClinicalWorks Submission
--- OUTSIDE RECORDS SUMMARY | 2018-04-03 17:02 | XMS REPORT ---
Author Author Manjeet Lancaster [facility] [place] e[employer] Address Unknown Phone Unavailable Care Team Providers Care Bibliographic Services Specialist Name Role Phone Manjeet Lancaster Unavailable Allergies, Adverse Reactions, Alerts Substance Reaction Event Type Lyrica Blurry vision Drug Allergy Gabapentin drowsy Drug Allergy Problems Problem Type Condition Code Onset Dates Condition Status Assessment Spasm of muscle, back M62.830 Active Problem Lumbar foraminal stenosis M99.83 Active Problem Spasm of muscle, back M62.830 Active Problem Lumbar spinal stenosis M48.06 Active Assessment Lumbar spinal stenosis M48.06 Active Assessment Lumbar foraminal stenosis M99.83 Active Problem Lumbosacral spondylosis without myelopathy M47.817 Active Assessment Lumbosacral spondylosis without myelopathy M47.817 Active Medications Medication Code System Code Instructions Start Date End Date Status Dosage Tramadol HCl [facility] [address]-72 50 MG Orally every 6 hrs Active 1 tablet as needed Alosetron HCl [facility] [address]-04 0.5 MG Orally Twice a day Active 1 tablet Omeprazole [facility] [address]-08 20 MG Orally Once a day Active 1 capsule Claritin [facility] [address]-77 10 MG Orally Once a day Active 1 tablet Atenolol [facility] [address]-89 50 MG Orally Once a day Active 1 tablet Cinnamon [facility] [address]78 500 MG Orally Active as directed Valium [facility] [address]-97 5 MG Orally Twice a day Nov 24, 2016 Active 1 tablet as needed ProAir HFA [facility] [address]-36 108 (90 Base) MCG/ACT Inhalation every 4 hrs Active 2 puffs as needed MetFORMIN HCl ER [facility] [address]-62 500 MG Orally Once a day Active 1 tablet with evening meal Vitamin B12 [facility] [address]2675 1000 MCG Orally Once a day Active 1 tablet Klor-Con 10 [facility] [address]-28 10 MEQ Orally Twice a day Active 1 tablet with food TUMERIC NDC 0 400 MG ORALLY ONCE A DAY Active 1 CAPSULE TART BENITES EXTRACT/TUMERIC NDC 0 875 MG ORALLY ONCE A DAY Active ONE CAPSULE Folic Acid [facility] [address]-94 1 MG Orally Once a day Active 1 tablet Magnesium [facility] [address]-48 100 MG Orally Four times a day Active 1 tablet with food Hydrochlorothiazide [facility] [address]-60 25 MG Orally Three times a Week Active 1 tablet in the morning Glimepiride [facility] [address]-42 2 MG Orally Once a day Active 1 tablet with breakfast or the first main meal of the day Insulin Syringe [facility] 8330-532987 28G X 1/2" 1 ML Active as directed Lumigan [facility] [address]-42 0.03 % Ophthalmic Once a day Active 1 drop into affected eye in the evening Calcium [facility] [address]67-[address]77 600 MG Orally Twice a day Active 1 tablet with meals Fish Oil [facility] [address]62-[address]05 1200 MG Orally Once a day Active 1 capsule Methotrexate Sodium [facility] [address]-93 50 MG/2ML Injection Active as directed Vital Signs Date/Time: Nov 24, 2016 BMI 49.06 Index Weight 259.7 lbs Height 61 in Temperature 97.4 F Cardiac Monitoring Heart Rate 64 /min Blood Pressure Diastolic 80 mm Hg Blood Pressure Systolic 132 mm Hg Results No Known Results Summary Purpose eClinicalWorks Submission
--- OUTSIDE RECORDS SUMMARY | 2018-04-03 17:02 | XMS REPORT ---
Author Author [facility] Address Unknown Phone Unavailable Care Team Providers Care Cyber Defense Forensics Analyst Name Role Phone DR MICHELLE ZENDEJAS Unavailable Unavailable Problems This patient has no known problems. Allergies, Adverse Reactions, Alerts This patient has no known allergies or adverse reactions. Medications This patient has no known medications. Results Test Description Test Time Test Comments Text Results Atomic Results Result Comments GLUCOMETER GLUCOSE- LAB USE ONLY 2016-08-19 12:26:00 GLUCOMETER (test code=GMG) 129 mg/dL 70-100 CLEANED METERMeter ID: [id number]: [id number] NEENA MAS
--- OUTSIDE RECORDS SUMMARY | 2018-04-03 17:02 | XMS REPORT ---
Author Author Manjeet Lancaster [facility] eClinicalWorks Address Unknown Phone Unavailable Care Team Providers Care Account Receivable Clerk Name Role Phone Manjeet Lancaster Unavailable Allergies, Adverse Reactions, Alerts Substance Reaction Event Type Lyrica Blurry vision Drug Allergy Gabapentin drowsy Drug Allergy Contrast dye Info Not Available Non Drug Allergy Problems Problem Type Condition Code Onset Dates Condition Status Assessment Spasm of muscle, back M62.830 Active Assessment Lumbar spinal stenosis M48.06 Active Assessment Lumbar foraminal stenosis M99.83 Active Assessment Diabetic peripheral neuropathy E11.42 Active Problem Diabetic peripheral neuropathy E11.42 Active Problem Lumbar spinal stenosis M48.06 Active Problem Lumbar radiculopathy M54.16 Active Problem Lumbosacral spondylosis without myelopathy M47.817 Active Assessment Lumbosacral spondylosis without myelopathy M47.817 Active Problem Lumbar foraminal stenosis M99.83 Active Problem Spasm of muscle, back M62.830 Active Medications Medication Code System Code Instructions Start Date End Date Status Dosage Cinnamon ND 73736980990 500 MG Orally Active as directed ProAir HFA [facility] 18791136616 108 (90 Base) MCG/ACT Inhalation every 4 hrs Active 2 puffs as needed TUMERIC NDC 0 400 MG ORALLY ONCE A DAY Active 1 CAPSULE Lumigan [facility] [address]-97 0.03 % Ophthalmic Once a day Active 1 drop into affected eye in the evening Klor-Con 10 ND 98662394081 10 MEQ Orally Twice a day Active 1 tablet with food Savella ND 39581796248 5 MG Orally Twice a day Active as directed Valium ND 97472201708 5 MG Orally Twice a day Active 1 tablet as needed TART BENITES EXTRACT/TUMERIC NDC 0 875 MG ORALLY ONCE A [place] [address]-09 100 MG Orally Four times a day Active 1 tablet with food Calcium ND 89032090804 600 MG Orally Twice a day Active 1 tablet with meals Atenolol ND 07655363054 50 MG Orally Once a day Active 1 tablet Claritin [facility] 83363070423 10 MG Orally Once a day Active 1 tablet Methotrexate Sodium [facility] 39765456549 50 MG/2ML Injection Active as directed Clonazepam [facility] 71349136159 0.5 MG Orally as needed Active 1 tablet Omeprazole [facility] 12031161697 20 MG Orally Once a day Active 1 capsule Tramadol HCl [facility] 62685254694 50 MG Orally every 6 hrs Active 1 tablet as needed Physical Therapy ND 0 Eval & Treat Active as directed Folic Acid [facility] 15502606568 1 MG Orally Once a day Active 1 tablet Vitamin B12 [facility] 25016446640 1000 MCG Orally Once a day Active 1 tablet MetFORMIN HCl ER [facility] 59117081341 500 MG Orally Once a day Active 1 tablet with evening meal Alosetron HCl [facility] 65079331787 0.5 MG Orally Twice a day Active 1 tablet Fish Oil [facility] 78169674785 1200 MG Orally Once a day Active 1 capsule Hydrochlorothiazide [facility] 10106174844 25 MG Orally Three times a Week Active 1 tablet in the morning Glimepiride [facility] 73014086903 2 MG Orally Once a day Active 1 tablet with breakfast or the first main meal of the day Insulin Syringe [facility] 78989991486 28G X 1/2" 1 ML Active as directed Vital Signs Date/Time: Jan 31, 2017 BMI 49.18 Index Weight 260.3 lbs Height 61 in Temperature 97.3 F Cardiac Monitoring Heart Rate 112 /min Blood Pressure Diastolic 72 mm Hg Blood Pressure Systolic 104 mm Hg Results No Known Results Summary Purpose eClinicalWorks Submission
--- OUTSIDE RECORDS SUMMARY | 2018-04-03 17:02 | XMS REPORT ---
Author Author Manjeet Lancaster Organization [employer] Address Unknown Phone Unavailable Care Team Providers Care Mine Shifter Name Role Phone Manjeet Lancaster CP Unavailable [...] End Date Status Dosage Folic Acid [facility] [address]-84 1 MG Orally Once a day Active 1 tablet Vitamin B12 [facility] [address] 1000 MCG Orally Once a day Active 1 tablet Lumigan [facility] [address]-51 0.03 % Ophthalmic Once a day Active 1 drop into affected eye in the evening Hydrochlorothiazide [facility] [address]-34 25 MG Orally Three times a Week Active 1 tablet in the morning Omeprazole [facility] [address]-47 20 MG Orally Once a day Active 1 capsule Fish Oil [facility] [address] 1200 MG Orally Once a day Active 1 capsule Calcium [facility] [address]01 600 MG Orally Twice a day Active 1 tablet with meals Magnesium [facility] [address]-30 100 MG Orally Four times a day Active 1 tablet with food TUMERIC KSC 0 400 MG ORALLY ONCE A DAY Active 1 CAPSULE Valium [facility] [address]-13 5 MG Orally Twice a day Nov 24, 2016 Active 1 tablet as needed ProAir HFA [facility] [address]-25 108 (90 Base) MCG/ACT Inhalation every 4 hrs Active 2 puffs as needed Insulin Syringe [facility] 8330-868986 28G X 1/2" 1 ML Active as directed Klor-Con 10 [facility] [address]-27 10 MEQ Orally Twice a day Active 1 tablet with food Glimepiride [facility] [address]-45 2 MG Orally Once a day Active 1 tablet with breakfast or the first main meal of the day Alosetron HCl [facility] [address]-98 0.5 MG Orally Twice a day Active 1 tablet TART BENITES EXTRACT/TUMERIC ND 0 875 MG ORALLY ONCE A DAY Active ONE CAPSULE Cinnamon [facility] 470[address]26 500 MG Orally Active as directed Claritin [facility] [address]-01 10 MG Orally Once a day Active 1 tablet Methotrexate Sodium [facility] [address]-34 50 MG/2ML Injection Active as directed MetFORMIN HCl ER [facility] [address]-65 500 MG Orally Once a day Active 1 tablet with evening meal Tramadol HCl [facility] [address]-02 50 MG Orally every 6 hrs Active 1 tablet as needed Atenolol [facility] [address]-96 50 MG Orally Once a day Active 1 tablet Results No Known Results Summary Purpose eClinicalWorks Submission
--- OUTSIDE RECORDS SUMMARY | 2018-04-03 17:02 | XMS REPORT ---
Author Author Manjeet Lancaster Organization [employer] Address Unknown Phone Unavailable Care Team Providers Care Loan Underwriter Name Role Phone Manjeet Lancaster CP Unavailable Allergies No Known Allergies Problems Problem Type Condition Code Onset Dates Condition Status Assessment Lumbar spinal stenosis M48.06 Active Problem Diabetic peripheral neuropathy E11.42 Active Problem Lumbar spinal stenosis M48.06 Active Problem Lumbar radiculopathy M54.16 Active Problem Lumbosacral spondylosis without myelopathy M47.817 Active Assessment Lumbar radiculopathy M54.16 Active Problem Lumbar foraminal stenosis M99.83 Active Problem Spasm of muscle, back M62.830 Active Medications No Known Medications Results No Known Results Summary Purpose eClinicalWorks Submission
[2018-04-03] MEDS ORDERED: ONDANSETRON HCL INJ 2MG/ML 2ML 2 MG/ML VIAL IV STA (17:27)
[2018-04-03] MEDS ORDERED: MORPHINE SULFATE INJ 4 MG/ML INJ 1ML IV PRN (17:30)
[2018-04-03 17:53] LABS: BASOPHILS % 0.3 % (0.0-1.0); EOSINOPHILS # (AUTO) 0.1 (0.0-0.4); EOSINOPHILS % 0.8 % (0.0-6.0); HEMATOCRIT 42.4 % (34.2-44.1); HEMOGLOBIN 14.2 g/dL (12.0-16.0); LYMPHOCYTES # (AUTO) 3.3 (1.0-3.2); LYMPHOCYTES % 28.4 % (18.0-39.1); MEAN CORPUSCULAR HEMOGLOBIN 31.3 pg (28-32); MEAN CORPUSCULAR HGB CONC 33.5 g/dL (31-35); MEAN CORPUSCULAR VOLUME 93.4 fL (81-99); MONOCYTES # (AUTO) 0.5 (0.2-0.8); MONOCYTES % 3.9 % (4.4-11.3); NEUTROPHILS # (AUTO) 7.8 (2.1-6.9); NEUTROPHILS % 66.1 % (38.7-80.0); PLATELET COUNT 348 x10e3/uL (140-360); RED BLOOD COUNT 4.54 x10e6/uL (3.6-5.1); RED CELL DISTRIBUTION WIDTH 13.9 % (11.7-14.4)
[2018-04-03 18:03] LABS: BILIRUBIN,URINE NEGATIVE (NEGATIVE); CLARITY,URINE SL CLOUDY (CLEAR); COLOR,URINE YELLOW (YELLOW); KETONES,URINE 1+ (NEGATIVE); LEUKOCYTE ESTERASE ,URINE TRACE (NEGATIVE); NITRITE,URINE NEGATIVE (NEGATIVE); PROTEIN,URINE DIPSTICK NEGATIVE (NEGATIVE); URINE UROBILINOGEN 0.2 mg/dL (0.2 - 1)
[2018-04-03 18:12] LABS: BACTERIA,URINE FEW /HPF; EPITHELIAL CELLS,URINE FEW /LPF; RBC,URINE 21-50 /HPF (0-5)
[2018-04-03 18:19] LABS: ALANINE AMINOTRANSFERASE 25 IU/L (0-55); ALBUMIN 3.7 g/dL (3.5-5.0); ALBUMIN/GLOBULIN RATIO 1.1 (0.8-2.0); ALKALINE PHOSPHATASE 98 IU/L (40-150); ANION GAP 18.3 mmol/L (8-16); BLOOD UREA NITROGEN 13 mg/dL (7-26); BUN/CREATININE RATIO 16 (6-25); CALCIUM 9.5 mg/dL (8.4-10.2); CARBON DIOXIDE 23 mmol/L (22-29); CHLORIDE 98 mmol/L (98-107); CREATININE, SERUM 0.79 mg/dL (0.57-1.11); EST GLOMERULAR FILTRATION RATE > 60 ML/MIN (60-); GLUCOSE 144 mg/dL (74-118); POTASSIUM 3.3 mmol/L (3.5-5.1); SODIUM 136 mmol/L (136-145)
[2018-04-03] MEDS: SODIUM CHLORIDE 0.9% 1000ML 1,000 ML IV SCH (18:21)
[2018-04-03] MEDS ORDERED: METOPROLOL SUCC50 MG PO (18:37)
[2018-04-03] MEDS ORDERED: CURAMED PEG (18:37)
[2018-04-03] MEDS ORDERED: CBD PO (18:37)
[2018-04-03] MEDS ORDERED: FARXIGA PO (18:37)
[2018-04-03] MEDS ORDERED: D3-5050000 UNIT PO (18:37)
[2018-04-03] MEDS ORDERED: COLESTIPOL HCL1 G1 PO (18:37)
[2018-04-03] MEDS ORDERED: [UNRECOGNIZED DRUG - OTHER] PO (18:37)
[2018-04-03] MEDS ORDERED: METFORMIN HCL500 M1 PO (18:37)
[2018-04-03] MEDS ORDERED: FOLIC ACID1 MG PO (18:37)
[2018-04-03] MEDS ORDERED: CINNAMON500 MG PEG (18:37)
[2018-04-03] MEDS ORDERED: [UNRECOGNIZED DRUG - OTHER] PO (18:37)
[2018-04-03] MEDS ORDERED: SAVELLA50 MG PO (18:37)
[2018-04-03] MEDS ORDERED: OMEPRAZOLE40 MG PO (18:37)
[2018-04-03] MEDS ORDERED: B-12 5,000 MCG1 EACH PO (18:37)
[2018-04-03] MEDS ORDERED: CHLORDIAZEPOXI1 EACH PO (18:37)
[2018-04-03] MEDS ORDERED: VENLAFAXINE H37.5 MG PO (18:37)
[2018-04-03] MEDS ORDERED: HYDROCHLOROTHIA25 MG PO (18:37)
[2018-04-03] MEDS ORDERED: GABAPENTIN300 MG PO (18:37)
[2018-04-03] MEDS ORDERED: POTASSIUM CHLO10 ME1 PO (18:37)
[2018-04-03] MEDS ORDERED: GLIMEPIRIDE4 MG PO (18:37)
[2018-04-03] MEDS ORDERED: [UNRECOGNIZED DRUG - OTHER] PO (18:37)
[2018-04-03] MEDS ORDERED: METHOTREXA25 MG/1 ML IM (18:37)
[2018-04-03] MEDS ORDERED: [UNRECOGNIZED DRUG - OTHER] PO (18:37)
--- NOTE | 2018-04-03 18:39 | Diagnostic Imaging Report ---
EXAM: CT of the abdomen and pelvis WITHOUT contrast HISTORY: Left flank pain, urinary frequency, rule out stone COMPARISON: Images from a CT of the abdomen and pelvis June 01, 2011 TECHNIQUE: The abdomen and pelvis were scanned utilizing a multidetector helical scanner. Coronal and sagittal reformats are available. PROTOCOL: Routine IV CONTRAST: None, which limits sensitivity and specificity of evaluation of the soft tissues and vascular structures. ORAL CONTRAST: None, which limits sensitivity and specificity of evaluation of the bowel. RADIATION DOSE: Total DLP: 819.07 mGy*cm Estimated effective dose: (DLP x 0.015 x size factor) Dose modulation, iterative reconstruction, and/or weight based adjustment of the mA/kV was utilized to reduce the radiation dose to as low as reasonably achievable. COMPLICATIONS: None FINDINGS: LOWER THORAX: Mild bibasilar atelectasis. HEPATOBILIARY: Diffusely decreased attenuation relative to the spleen. No definite focal hepatic lesions. No biliary ductal dilatation. Metallic clips in the right upper quadrant of the abdomen are compatible with prior cholecystectomy. SPLEEN: No splenomegaly. PANCREAS: No focal masses or ductal dilatation. ADRENALS: No adrenal nodule. KIDNEYS/URETERS: Right: No stones or hydronephrosis. Left: A 6 mm stone near the left ureterovesicular junction results in mild hydroureteronephrosis. PELVIC ORGANS/BLADDER: The urinary bladder is decompressed. PERITONEUM / RETROPERITONEUM: No free air or fluid. GI TRACT: On limited evaluation of the gastrointestinal tract, no dilation or wall thickening identified. The stomach is decompressed, limiting evaluation. Mild scattered colonic diverticuli, without evidence of acute diverticulitis. The appendix is normal. LYMPH NODES: No pathologically enlarged lymph nodes. VESSELS: Mild scattered atherosclerotic vascular calcifications, including the coronary arteries. BONES: Diffusely decreased mineralization of the osseous structures limits bone detail. The focal degenerative changes, most notably at L5-S1. SOFT TISSUES: Unremarkable. IMPRESSION: 1. A 6 mm stone near the left ureterovesicular junction resulting in mild left hydroureteronephrosis. 2. Hepatic steatosis. 3. Mild coronary atherosclerosis. 4. Mild colonic diverticulosis. Signed by: Dr. Ned Moses D.O., M.M.M. on 04/03/2018 6:36 PM
[2018-04-03] MEDS ORDERED: KETOROLAC TROMETHAMINE 30 MG/ML VIAL ONE (19:38)
[2018-04-03] MEDS ORDERED: CEFTRIAXONE SOD 1 GM VIAL IM ONE (19:45)
[2018-04-03] MEDS ORDERED: KETOROLAC TROMETHAMINE 30 MG/ML VIAL IV ONE (19:45)
[2018-04-03] MEDS: CEFTRIAXONE SOD 1 GM/NS 50 ML 50 ML IV SCH (20:14)
[2018-04-03] MEDS ORDERED: HYDROMORPHONE 1MG/1ML INJ IV PRN (20:15)
[2018-04-03] MEDS ORDERED: HYDROMORPHONE 2MG/ML 2 MG/ML ML IV PRN (20:15)
[2018-04-03] MEDS ORDERED: KCL 20MEQ/.9 SOD CHL 1,000 ML IV ONE (20:15)
[2018-04-03] MEDS ORDERED: DEXTROSE 50% SYRINGE 50 ML IV PRN (20:15)
[2018-04-03] MEDS: INSULIN REGULAR, HUMAN 100 UNIT/1 ML 3ML VIAL SQ SCH (21:12)
[2018-04-03 22:06] VITALS: BP 146/91
[2018-04-04] VITALS (9 sets, daily range): BP systolic 117–149; BP diastolic 61–95
[2018-04-04] MEDS: ONDANSETRON HCL INJ 2MG/ML 2ML 2 MG/ML VIAL IV PRN ×2 (03:07→09:40)
[2018-04-04 05:36] LABS: BASOPHILS % 0.3 % (0.0-1.0); EOSINOPHILS # (AUTO) 0.1 (0.0-0.4); HEMATOCRIT 38.6 % (34.2-44.1); HEMOGLOBIN 12.7 g/dL (12.0-16.0); LYMPHOCYTES # (AUTO) 1.8 (1.0-3.2); LYMPHOCYTES % 18.4 % (18.0-39.1); MEAN CORPUSCULAR HEMOGLOBIN 31.1 pg (28-32); MEAN CORPUSCULAR HGB CONC 32.9 g/dL (31-35); MEAN CORPUSCULAR VOLUME 94.6 fL (81-99); MONOCYTES # (AUTO) 0.4 (0.2-0.8); MONOCYTES % 4.6 % (4.4-11.3); NEUTROPHILS # (AUTO) 7.2 (2.1-6.9); NEUTROPHILS % 75.2 % (38.7-80.0); PLATELET COUNT 267 x10e3/uL (140-360); RED BLOOD COUNT 4.08 x10e6/uL (3.6-5.1); RED CELL DISTRIBUTION WIDTH 14.1 % (11.7-14.4)
[2018-04-04 06:12] LABS: ALANINE AMINOTRANSFERASE 45 IU/L (0-55); ALBUMIN 3.2 g/dL (3.5-5.0); ALBUMIN/GLOBULIN RATIO 1.1 (0.8-2.0); ALKALINE PHOSPHATASE 91 IU/L (40-150); ANION GAP 14.4 mmol/L (8-16); BLOOD UREA NITROGEN 13 mg/dL (7-26); BUN/CREATININE RATIO 16 (6-25); CALCIUM 8.8 mg/dL (8.4-10.2); CARBON DIOXIDE 25 mmol/L (22-29); CHLORIDE 105 mmol/L (98-107); EST GLOMERULAR FILTRATION RATE > 60 ML/MIN (60-); GLUCOSE 151 mg/dL (74-118); POTASSIUM 3.4 mmol/L (3.5-5.1); SODIUM 141 mmol/L (136-145)
[2018-04-04] MEDS: SODIUM CHLORIDE 0.9% 1000ML 1,000 ML IV SCH ×2 (06:14→13:30)
--- NOTE | 2018-04-04 07:26 | NUR ---
seen by dr shore, pt scheduled for left stent placement @ 12N, pt aware
[2018-04-04] MEDS: INSULIN REGULAR, HUMAN 100 UNIT/1 ML 3ML VIAL SQ SCH ×4 (07:30→21:45)
--- NOTE | 2018-04-04 07:43 | Consultation ---
DATE OF CONSULTATION: April 04, 2018 UROLOGY CONSULTATION CHIEF COMPLAINT: STONES REASON FOR CONSULTATION: Kidney stones. HISTORY OF PRESENT ILLNESS: Ms. Goode is a 57-year-old female admitted to the hospital with a 1-day history of left-sided flank pain. Denied fevers. No chills. Denied nausea. No vomiting. PAST MEDICAL HISTORY: Known for hypertension, diabetes mellitus, hyperlipidemia, fibromyalgia, neuropathy, obesity, cholecystectomy, hysterectomy, knee surgery. MEDICATIONS: Please see MAR. ALLERGIES: IODINE. SOCIAL HISTORY: No smoking. No drinking. FAMILY HISTORY: Denied urologic stones or malignancies. REVIEW OF SYSTEMS: Noncontributory. Positive as above for all other systems. PHYSICAL EXAMINATION GENERAL: A middle-aged female in no acute distress. VITALS: Temperature 96.8, pulse 116, respirations 20, blood pressure 124/74, weight 284 pounds, height 5 feet 3 inches. BMI greater than 50. HEENT: Sclerae anicteric. NECK: Supple. BACK: Without costovertebral angle tenderness bilaterally. ABDOMEN: Soft. It is nontender. No palpable masses. No palpable hernias. No organomegaly. : Normal appearing external genitalia. EXTREMITIES: Without edema in upper and lower extremities. PSYCH: Mood appropriate. SKIN: Intact. Normal color. PERTINENT LABORATORY DATA: CT scan with a 6 mm left UVJ stone with left hydronephrosis. CBC normal except for white blood cell count of 11,770. Chem-7 normal except for potassium of 3.3. Glucose 144. Urinalysis 5-10 whites per high power field and 20-30 red blood cells per high power field. IMPRESSION 1. Left ureteral calculus. 2. Left hydronephrosis. 3. Left renal colic. 4. Microscopic hematuria. 5. Urinary tract infection. 6. Leukocytosis. 7. Tachycardia. 8. Obesity. 9. Hypokalemia. PLAN: The patient will need urgent stenting. Will perform this as soon as possible. Thank you for allowing me to participate in the care of your patient. We will be happy to follow along with you. Job#: [id number] RI cc: JUANA SINHA MD MTDD
--- NOTE | 2018-04-04 11:00 | NUR ---
PT LEFT FLOOR FOR PROCEDURE
[2018-04-04] MEDS ORDERED: IOPAMIDOL 610MG/1ML 300 MG/ML VIAL IV ONE (11:46)
[2018-04-04] MEDS ORDERED: KETOROLAC TROMETHAMINE 30 MG/ML VIAL ONE (13:01)
--- NOTE | 2018-04-04 13:30 | NUR ---
PATIENT RETURNED TO THE UNIT, AA/O X3, NO C/O AT PRESENT.
--- NOTE | 2018-04-04 14:00 | NUR ---
PT VOIDED BSC POST PROCEDURE. CLEAR URINE, NO BLOOD NOTED.
--- NOTE | 2018-04-04 14:03 | NUR ---
Nutrition Screen Note RD Recommendation for Physician: -Rec advancing to ADA diet as medically feasible Plan of Care: RD following, monitoring for tolerance and adequacy Nutrition reason for involvement: Nutrition Risk Trigger MST Primary Diagnose(s): 1. Left ureteral calculus. 2. Left hydronephrosis. 3. Left renal colic. 4. Microscopic hematuria. 5. Urinary tract infection. 6. Leukocytosis. PMH: hypertension, diabetes mellitus, hyperlipidemia, fibromyalgia, neuropathy, obesity, cholecystectomy, hysterectomy, knee surgery, IBS Ht: 63in Wt: 284lb BMI: 50.3kg/m2 IBW: 115lb RD Assessment: (04/04/18) Chart reviewed. Labs and meds reviewed. 57yo F, who is admitted for L flank pain (x1 day). Pt had stent placement for kidney stones today. Visited pt in the room prior to procedure. Pt reports intentional weight lost with diet changes at home. L side flank pain persisted with some nausea. Meds were given. No vomiting episode today. LBM 04/03, normal per pt. Pt denies any chewing or swallowing issue. Will continue to monitor and follow. Current Diet: NPO Malnutrition Evaluation (04/04/2018) The patient does not meet criteria for a specified degree of malnutrition at this time. Will re-evaluate at follow-up as appropriate. Diet Education Needs Assessment: Diet education not indicated. Nutrition Care Level: low Signed: Babita Loyola MS, RD, LD
--- NOTE | 2018-04-04 14:50 | NUR ---
Visit made by the Spiritual Care Department Pastoral Visitor, Anita Knapp. PV provided pastoral presence, prayer, hospitality, and supportive listening. Pastoral Visitor informed pt/family of the scope of Hydrodynamicist Services and availability. HUNTER GRAYSON Res Habilitation Assistant Spiritual Care Department O: [phone] Pager: [phone] ([phone] number calling from)
--- NOTE | 2018-04-04 15:19 | Operative Report ---
DATE OF PROCEDURE: April 04, 2018 PREOPERATIVE DIAGNOSES 1. Left hydronephrosis. 2. Urinary tract infections. POSTOPERATIVE DIAGNOSES 1. Left hydronephrosis. 2. Urinary tract infections. OPERATIONS PERFORMED 1. Cystourethroscopy with right ureteral catheterization and right retrograde pyelogram (entirely separate procedure for multiple chronic urinary tract infections). 2. Cystourethroscopy with insertion of a left indwelling ureteral stent (entirely separate procedure for the diagnosis of left hydronephrosis). 3. Supervision of fluoroscopy. 4. Interpretation of retrograde pyelography. ANESTHESIA: General. ESTIMATED BLOOD LOSS: Minimal. COMPLICATIONS: None. INDICATIONS FOR PROCEDURE: Mrs. Goode is a 57-year-old female with an infection, obstructed infected left collecting system secondary to a six-month history of calculus. She and I had a long discussion regarding the alternatives, risks and benefits including doing nothing, stent placement, percutaneous nephrostomy. She voiced understanding of the options, of the alternatives, of the risks and the benefits. She explicitly voiced understanding that the stent is a temporary indwelling device and must be removed and that failure to do so could lead to encrustation, infection, inflammation, actual loss of kidney and even . She elected to proceed. PROCEDURE IN DETAIL: After informed consent was obtained, the patient was taken to the operative suite and placed supine on the operating table and underwent general anesthesia by the anesthesia service. She was then placed in the dorsal lithotomy position and sterilely prepped and draped in the standard fashion for cystoscopy. A time out was taken. Site was confirmed. A 22.5-Mongolian cystoscope was inserted per urethra, and a normal urethra was noted. Panendoscopy of the bladder revealed no tumors, no stones. Both ureteral orifices were in their normal anatomical location and position and were seen to efflux clear urine. Bilateral retrograde pyelograms were performed, revealing normal right retrograde pyelograms, left hydronephrosis secondary to a distal 6-mm ureteral calculus. Postoperative views on the left side revealed a stent in adequate position after a stent was deployed with a coil in the renal pelvis and a coil in the bladder. The bladder was drained, and the patient was awakened from anesthesia and transported to the recovery room in excellent condition. SUPERVISION OF FLUOROSCOPY AND INTERPRETATION OF RETROGRADE PYELOGRAPHY: I was present throughout the entire procedure, and I supervised fluoroscopy. There was no radiologist present. Attention was turned toward the left ureteral orifice, which was catheterized with a 5-Mongolian open-ended catheter. Retrograde pyelogram was performed on the right side, revealing delicate ureters, delicate pelvocaliceal system. Left side, there was a 6-mm distal ureteral calculus with proximal hydronephrosis, a stent in adequate position. Job#: [id number] EV
[2018-04-04] MEDS ORDERED: ACETAMINOPHEN 325 MG TAB PO PRN (16:00)
[2018-04-04] MEDS ORDERED: LUMIGAN2.5 M1 OU (16:19)
[2018-04-04] MEDS ORDERED: METHOTREXATE SODIUM IM SCH (16:30)
[2018-04-04] MEDS ORDERED: PROPOFOL IV EMULSION 10 MG/ML 20 ML VIAL ONE (17:32)
[2018-04-04] MEDS ORDERED: SEVOFLURANE INHAL SOLN 250 ML PEN BTL ONE (17:32)
[2018-04-04] MEDS ORDERED: ONDANSETRON HCL INJ 2MG/ML 2ML 2 MG/ML VIAL ONE (17:32)
[2018-04-04] MEDS ORDERED: LIDOCAINE HCL 2% LOCAL INJ 5 ML SDV VIAL INJ ONE (17:32)
[2018-04-04] MEDS ORDERED: DEXAMETHASONE SOD PHOS INJ 4 MG/ML VIAL ONE (17:32)
[2018-04-04] MEDS: CHLORDIAZEPOXIDE/CLIDINIUM 1 CAP PO SCH ×3 (18:00→23:28)
[2018-04-04] MEDS: VENLAFAXINE HCL 75 MG TAB PO SCH (18:00)
[2018-04-04] MEDS: COLESTIPOL HCL 1 G TAB PO SCH (18:00)
[2018-04-04] MEDS ORDERED: METHOTREXATE SOD 50 MG/2 ML IM SCH (18:00)
[2018-04-04] MEDS: GLIMEPIRIDE 2 MG TAB PO SCH (18:00)
[2018-04-04] MEDS: METFORMIN HCL 500 MG TAB CR PO SCH (18:00)
[2018-04-04] MEDS ORDERED: FENTANYL CITRATE/PF 100MCG/2 ML INJ ONE (18:02)
[2018-04-04] MEDS ORDERED: MIDAZOLAM HCL 2 MG/2 ML VIAL ONE (18:02)
[2018-04-04] MEDS ORDERED: BIMATOPROST(OPTH) 2.5 ML BOTTLE OP SCH (21:00)
[2018-04-04] MEDS ORDERED: POTASSIUM CHLORIDE 10MEQ EA PO SCH (21:00)
[2018-04-04] MEDS ORDERED: GABAPENTIN 300 MG CAP PO SCH (21:00)
[2018-04-04] MEDS ORDERED: PANTOPRAZOLE SOD 40 MG TABEC PO SCH (21:00)
[2018-04-04] MEDS: CEFTRIAXONE SOD 1 GM/NS 50 ML 50 ML IV SCH (23:07)
[2018-04-05] VITALS: BP 97/53
[2018-04-05 04:00] VITALS: BP 123/63
[2018-04-05] MEDS: SODIUM CHLORIDE 0.9% 1000ML 1,000 ML IV SCH ×2 (05:09→08:16)
[2018-04-05] MEDS: INSULIN REGULAR, HUMAN 100 UNIT/1 ML 3ML VIAL SQ SCH (07:30)
[2018-04-05] MEDS: GLIMEPIRIDE 2 MG TAB PO SCH (08:15)
[2018-04-05] MEDS: METFORMIN HCL 500 MG TAB CR PO SCH (08:16)
[2018-04-05] MEDS: COLESTIPOL HCL 1 G TAB PO SCH (08:16)
[2018-04-05] MEDS: VENLAFAXINE HCL 75 MG TAB PO SCH (08:16)
[2018-04-05 08:46] VITALS: BP 147/88
[2018-04-05] MEDS ORDERED: FOLIC ACID 1 MG TAB PO SCH (09:00)
[2018-04-05] MEDS ORDERED: METOPROLOL SUCCINATE 50 MG TAB XL PO SCH (09:00)
[2018-04-05] MEDS ORDERED: HYDROCHLOROTHIAZIDE 25 MG TAB PO SCH (09:00)
--- NOTE | 2018-04-05 09:39 | NUR ---
SOCIAL WORK INITIAL ASSESSMENT Continuity Person to bedside to discuss plan of care with patient/family. CM/SW role and care transitions discussed. Anticipated discharge plan discussed along with duration of care. CM/SW discussed patients right to make decisions in care. CM/SW work hours given. Patient lives: IN HOUSE WITH FAMILY Admit/Transfer: VIA ED FROM HOME POA/Emergency contact: HAIR [phone] Current/Previous Home Health: NONE PCP/Follow-up Care: ABILIO Current/Previous DME: [facility] Other Services: NONE Employment Status: HOUSEWIFE Areas of Concerns: NONE Referral Needs: NONE Education Needs: NONE IMM/PEREIRA given and signed (if applicable): NA Goal for discharge: RETURN HOME INDEPENDENTLY CM/SW left business card at the bedside with contact information. Name and number was also written on the patients whiteboard. Patient verbalized understanding of discussion. CM will follow-up with ongoing discharge and transition of care needs.
[2018-04-05 09:41] VITALS: BP 147/88
--- NOTE | 2018-04-05 12:17 | NUR ---
reviewed dc instructions with pt and family, verbalized understanding. vs stable.
[2018-04-05 12:33] VITALS: BP 168/81
== END 2018-04-05 12:51 | disposition home or self-care (01) ==
LOC: ER 16:56 → ERHOLD 21:06 → IMCU 22:09
PROVIDERS: ADMIT Internal Medicine; ATTEND Internal Medicine
DX: N13.2 Hydronephrosis with renal and ureteral calculous obstruction (principal); E11.9 Type 2 diabetes mellitus without complications; I10 Essential (primary) hypertension; N39.0 Urinary tract infection, site not specified; M06.9 Rheumatoid arthritis, unspecified; Z79.4 Long term (current) use of insulin; R31.29 Other microscopic hematuria; E66.9 Obesity, unspecified; Z68.41 Body mass index [BMI] 40.0-44.9, adult; E87.6 Hypokalemia
CPT/HCPCS: 36415 ×3; 52332; 52344; 74176; 74420; 80053 ×2; 81001; 82948 ×3; 83735; 85025 ×2; 87086; 99284; C2617; G0378 ×3; J0696 ×2; J1100; J1170 ×2; J1817; J1885 ×2; J2001; J2250; J2270; J2405 ×2; J2704; J7030 ×3; Q9967; S0164

== ENCOUNTER → 2018-04-28 | Day surgery (SDC) | payer OTHER ==
[2018-04-24 15:26] LABS: ANION GAP 17.1 mmol/L (8-16); BLOOD UREA NITROGEN 8 mg/dL (7-26); BUN/CREATININE RATIO 13 (6-25); CALCIUM 9.4 mg/dL (8.4-10.2); CARBON DIOXIDE 27 mmol/L (22-29); CHLORIDE 98 mmol/L (98-107); CREATININE, SERUM 0.64 mg/dL (0.57-1.11); EST GLOMERULAR FILTRATION RATE > 60 ML/MIN (60-); GLUCOSE 199 mg/dL (74-118); POTASSIUM 4.1 mmol/L (3.5-5.1); SODIUM 138 mmol/L (136-145)
[~2018-04-28] MED LIST changes: +ACETAMINOPHEN/CODEINE 300MG - 30MG TAB ONE; +B-12 5,000 MCG1 EACH PO; +CBD PO; +CEFTRIAXONE SOD 1 GM/NS 50 ML 50 ML IV ONE; +CHLORDIAZEPOXI1 EACH PO; +CINNAMON500 MG PO; +COLESTIPOL HCL1 G1 PO; +CURAMED PO; +D3-5050000 UNIT PO; +DESFLURANE 240 ML BTL INH ONE; +DEXAMETHASONE SOD PHOS INJ 4 MG/ML VIAL ONE; +FARXIGA PO; +FENTANYL CITRATE/PF 100MCG/2 ML INJ ONE; +FOLIC ACID1 MG PO; +GABAPENTIN300 MG PO; +GLIMEPIRIDE4 MG PO; +HYDROCHLOROTHIA25 MG PO; +INSULIN REGULAR, HUMAN 100 UNIT/1 ML 3ML VIAL ONE; +IOPAMIDOL 610MG/1ML 300 MG/ML VIAL IV ONE; +LIDOCAINE HCL 2% LOCAL INJ 5 ML SDV VIAL INJ ONE; +LUMIGAN2.5 M1 OU; +METFORMIN HCL500 M1 PO; +METHOTREXA25 MG/1 ML IM; +METOPROLOL SUCC50 MG PO; +MIDAZOLAM HCL 2 MG/2 ML VIAL ONE; +OMEPRAZOLE40 MG PO; +ONDANSETRON HCL INJ 2MG/ML 2ML 2 MG/ML VIAL ONE; +POTASSIUM CHLO10 ME1 PO; +PROPOFOL IV EMULSION 10 MG/ML 20 ML VIAL ONE; +ROCURONIUM BROMIDE 10 MG/ML 5ML VIAL ONE; +SAVELLA50 MG PO; +SUGAMMADEX SODIUM 200 MG/2 ML VIAL IV ONE; +VENLAFAXINE H37.5 MG PO; +[UNRECOGNIZED DRUG - OTHER] PO; +[UNRECOGNIZED DRUG - OTHER] PO; +[UNRECOGNIZED DRUG - OTHER] PO; +[UNRECOGNIZED DRUG - OTHER] PO
[2018-04-28 09:44] VITALS: BP 114/72
--- NOTE | 2018-04-28 10:57 | Operative Report ---
DATE OF PROCEDURE: April 28, 2018 PREOPERATIVE DIAGNOSES 1. Left indwelling ureteral stent. 2. Left ureteral calculus. POSTOPERATIVE DIAGNOSES 1. Left indwelling ureteral stent. 2. Left ureteral calculus. PROCEDURES 1. Cystourethroscopy with complicated removal of left indwelling stent (entirely separate procedure for the complicated stent encrustation). 2. Left-sided ureteroscopy and stent placement (entirely separate procedure for the left ureteral calculus). 3. Supervision of fluoroscopy with ureteroscopy. 4. Supervision of fluoroscopy for stent removal. 5. Interpretation of retrograde pyelography. ANESTHESIA: General. ESTIMATED BLOOD LOSS: Minimal. COMPLICATIONS: None. INDICATIONS: Mrs. Goode is a very pleasant 57-year-old female with a previous history of a 6 mm distal ureteral calculi. She and I had a long discussion about alternatives, risks and benefits including doing nothing, shock wave lithotripsy, ureteroscopy, percutaneous surgery, open surgery, and the fact that the stent is a temporary indwelling device and must be removed. Failure to do so could lead to encrustation, infection, inflammation, actual loss of kidney, and . She elects to proceed. PROCEDURE IN DETAIL: After informed consent was obtained, the patient was preoperatively identified and placed on the table. Underwent general anesthesia by the anesthesia service. Was placed in the dorsal lithotomy position, and sterilely prepped and draped for cystoscopy. The procedure was complicated secondary to the patient's morbid obesity. A 22.5-Gabonese cystoscope was inserted per urethra. Normal urethra was noted. There was an encrusted stent seen extruding from the left ureteral orifice. Guidewire was inserted along side the stent and with fluoroscopy. The stent was removed with moderate difficulty. The ureteroscope was advanced over the small stone. Utilizing 365 micron laser fiber, the stone was obliterated into small fragments. Of note, there were multiple fungus balls throughout the ureter. The ureteroscope was driven to the proximal ureter. Retrograde pyelogram was performed through the ureteroscope revealing no filling defects in the collecting system. Of note, there appeared to be some extravasation or duplication of the proximal ureter area. At this time, with no preparation visualized uteroscopically, a stent of 7 x 24 cm was coiled in the renal pelvis and coiled in the bladder. The string was tied and taped to the patient's inner thigh. Bladder was drained. The patient was awakened from anesthesia and transported to the recovery room in excellent condition with no untoward side effects noted. SUPERVISION OF FLUOROSCOPY: I was present throughout the entire procedure and I supervised the use of fluoroscopy as no radiologist was present at any time during this procedure. Attention was turned toward the left ureter. It was catheterized with the ureteroscope. Retrograde pyelogram was performed revealing partial duplication of the left collecting system. Delicate collecting system and no evidence of stone seen. Stent exchanged. Job#: [id number] DC
== END | disposition home or self-care (01) ==
LOC: OR 05:00
PROVIDERS: ATTEND Urology
DX: N20.1 Calculus of ureter (principal); Z96.0 Presence of urogenital implants; Z98.890 Other specified postprocedural states; Z46.6 Encounter for fitting and adjustment of urinary device; Z01.812 Encounter for preprocedural laboratory examination
CPT/HCPCS: 36415 ×2; 52315; 52332; 74420; 80048; 82948; 93005; C1758; C2617; J0696; J1100; J1817; J2001; J2250; J2405; J2704; Q9967

== ENCOUNTER → 2018-08-10 | Outpatient (CLI) | payer OTHER ==
[~2018-08-10] MED LIST changes: -ACETAMINOPHEN/CODEINE 300MG - 30MG TAB ONE; -CEFTRIAXONE SOD 1 GM/NS 50 ML 50 ML IV ONE; -DESFLURANE 240 ML BTL INH ONE; -DEXAMETHASONE SOD PHOS INJ 4 MG/ML VIAL ONE; -FENTANYL CITRATE/PF 100MCG/2 ML INJ ONE; -INSULIN REGULAR, HUMAN 100 UNIT/1 ML 3ML VIAL ONE; -IOPAMIDOL 610MG/1ML 300 MG/ML VIAL IV ONE; -LIDOCAINE HCL 2% LOCAL INJ 5 ML SDV VIAL INJ ONE; -MIDAZOLAM HCL 2 MG/2 ML VIAL ONE; -ONDANSETRON HCL INJ 2MG/ML 2ML 2 MG/ML VIAL ONE; -PROPOFOL IV EMULSION 10 MG/ML 20 ML VIAL ONE; -ROCURONIUM BROMIDE 10 MG/ML 5ML VIAL ONE; -SUGAMMADEX SODIUM 200 MG/2 ML VIAL IV ONE
--- NOTE | 2018-08-10 15:20 | Diagnostic Imaging Report ---
Exam: KUB - 2 views Clinical History: Renal calculus. Comparison: CT abdomen/pelvis without contrast 04/03/2018. Findings: Bowel gas partially obscures visualization of the kidneys. No evidence of stone. Nonobstructive bowel gas pattern. No acute osseous abnormality. Status post cholecystectomy. Impression: No evidence of renal stone. Signed by: Dr. Christen Hunter MD on 08/10/2018 3:17 PM
== END ==
LOC: RAD 14:11
PROVIDERS: ATTEND Urology
DX: N20.0 Calculus of kidney (principal)
CPT/HCPCS: 74018

== ENCOUNTER → 2018-11-22 | Outpatient (CLI) | payer OTHER ==
--- NOTE | 2018-11-22 15:07 | Diagnostic Imaging Report ---
Exam: KUB - 2 views Indication: Renal calculus Comparison: KUB of 08/10/2018 Findings: No radiographic apparent renal calculi. Nonobstructive bowel gas pattern. Degenerative changes of the visualized spine. Status post cholecystectomy. Impression: No radiographically apparent renal calculi. Signed by: Vanesa Downey MD on 11/22/2018 3:04 PM
== END ==
LOC: RAD 13:12
PROVIDERS: ATTEND Urology
DX: N20.0 Calculus of kidney (principal)
CPT/HCPCS: 74018

== ENCOUNTER → 2019-02-15 | Outpatient (CLI) | payer OTHER ==
--- NOTE | 2019-02-15 13:10 | Diagnostic Imaging Report ---
Abdomen 2 views Clinical indication: Calculus Comparison: 11/22/2018 Findings: No renal calculi are identified this examination. The bowel gas pattern is nonobstructive. Surgical clips project over the right upper quadrant likely from prior cholecystectomy. No acute osseous abdomen bodies. Impression: No radiographically apparent renal calculi. Signed by: Edmundo Gomez MD on 02/15/2019 1:07 PM
== END ==
LOC: RAD 12:08
PROVIDERS: ATTEND Urology
DX: N20.0 Calculus of kidney (principal)
CPT/HCPCS: 74018

== ENCOUNTER → 2019-05-02 | Outpatient (CLI) | payer OTHER ==
--- NOTE | 2019-05-02 12:15 | Diagnostic Imaging Report ---
EXAM: ABDOMEN-1VIEW (KUB) DATE: 05/02/2019 11:27 AM INDICATION: Calculus of kidney COMPARISON: 02/15/2019 FINDINGS: Bowel gas pattern is nonobstructive. No radiographically evident renal calculus is appreciated. Stable appearing phleboliths noted within the pelvis. No other abnormal intra-abdominal calcification is appreciated. Cholecystectomy clips noted within the right upper quadrant. Degenerative changes noted of the visualized spine. No acute osseous abnormality identified. IMPRESSION: No radiographically evident renal calculi identified. Signed by: Dr. Emmett Rain MD on 05/02/2019 12:13 PM
== END ==
LOC: RAD 11:16
PROVIDERS: ATTEND Urology
DX: N20.0 Calculus of kidney (principal)
CPT/HCPCS: 74018

== ENCOUNTER → 2020-02-26 | Outpatient (CLI) | payer OTHER | LOC: RAD 12:44 | PROVIDERS: ATTEND Urology | DX: N20.0 Calculus of kidney (principal) | CPT/HCPCS: 74018 ==